=== PATIENT | male | born 1950 | race Caucasian/White ===

== ENCOUNTER 2016-12-09 07:22 | Day surgery (SDC) | payer MEDICARE, OTHER ==
[~2016-12-09] VITALS: Ht 185.4 cm; Wt 120.1 kg
[~2016-12-09 07:22] MED LIST: ACIPHEX20 MG PO; LASIX20 MG PO; MIRAPEX0.125 MG PO; NO HOME MEDICATIONS
[2016-12-09 08:25] VITALS: BP 145/86; PULSE 56; TEMP 98.8
[2016-12-09] MEDS ORDERED: MIRAPEX 0.0.125 MG/T PO (08:31)
[2016-12-09] MEDS ORDERED: FLOMAX 0.40.4 MG/CAP PO (08:31)
[2016-12-09] MEDS ORDERED: NIACOR500 MG PO (08:32)
[2016-12-09] MEDS ORDERED: FISH OIL 1000MG1 CAP PO (08:32)
[2016-12-09] MEDS ORDERED: MULTI VITAMINS1 TAB PO (08:33)
[2016-12-09 09:34] VITALS: BP 113/89; PULSE 65; TEMP 98.7
[2016-12-09 09:50] VITALS: BP 146/79; PULSE 61
[2016-12-09 10:05] VITALS: BP 125/76; PULSE 60
[2016-12-09 10:20] VITALS: BP 141/81; PULSE 58
== END 2016-12-09 11:00 | disposition home or self-care (01) ==
LOC: SDCO 07:22
DX: Z86.010 Personal history of colon polyps (principal); D12.5 Benign neoplasm of sigmoid colon; K57.30 Diverticulosis of large intestine without perforation or abscess without bleeding; K64.0 First degree hemorrhoids
CPT/HCPCS: OP; J2250; J3010; J7030